=== PATIENT | female | born 1950 | race Caucasian/White ===

== ENCOUNTER 2021-03-10 16:46 | Emergency (ER) | payer OTHER ==
[~2021-03-10] VITALS: Ht 162.6 cm; Wt 84.9 kg
[2021-03-10 17:21] LABS: ABSOLUTE BASOPHILS 0.1 thou/uL (0.0-0.2); ABSOLUTE EOSINOPHILS 0.1 thou/uL (0.0-0.7); ABSOLUTE LYMPHOCYTES 2.9 thou/uL (0.8-5.3); ABSOLUTE MONOCYTES 0.4 thou/uL (0.0-1.2); ABSOLUTE NEUTROPHILS 3.1 thou/uL (1.6-8.1); BASOPHILS 1.2 %; EOSINOPHILS 2.2 %; HEMATOCRIT 34.7 % (37.0-47.0); HEMOGLOBIN 11.7 gm/dL (12.0-15.0); LYMPHOCYTES 43.3 %; MCH 29.6 pg (26.0-34.0); MCHC 33.8 g/dL (28.0-37.0); MCV 87.6 fL (80.0-100.0); MONOCYTES 6.1 %; MPV 6.8 fl. (7.2-11.1); NUCLEATED RBCS 0 /100WBC; PLATELET COUNT* 285 thou/uL (150-400); POLYS 47.2 %; RBC 3.97 mil/uL (4.20-5.00); RDW-CV 14.1 % (10.5-14.5); WBC 6.6 thou/uL (4.0-11.0)
[2021-03-10] MEDS ORDERED: ATENOLOL 25 MG25 M1 PO (17:24)
[2021-03-10] MEDS ORDERED: DULCOLAX STOOL100 M1 PO (17:25)
[2021-03-10] MEDS ORDERED: CALCIUM-VITAMI1 EACH PO (17:25)
[2021-03-10] MEDS ORDERED: LIPITOR40 MG PO (17:25)
[2021-03-10] MEDS ORDERED: FELODIPINE ER10 MG PO (17:25)
[2021-03-10] MEDS ORDERED: FLUOCINOLONE AC60 ML TOP (17:26)
[2021-03-10] MEDS ORDERED: NEURONTIN 300M300 M2 PO (17:27)
[2021-03-10] MEDS ORDERED: FLUOROURAC5 GM/100 M IV (17:27)
[2021-03-10] MEDS ORDERED: LISINOPRIL20 MG PO (17:28)
[2021-03-10] MEDS ORDERED: FEMARA2.5 MG PO (17:28)
[2021-03-10] MEDS ORDERED: NITROSTAT0.4 M1 PO (17:29)
[2021-03-10] MEDS ORDERED: VENLAFAXINE HCL75 M2 PO (17:29)
[2021-03-10] MEDS ORDERED: MIRALAX119 GM PO (17:29)
[2021-03-10] MEDS ORDERED: PROTONIX40 M4 PO (17:29)
[2021-03-10 17:30] LABS: CALCIUM 9.3 mg/dL (8.5-10.1); CREATININE 1.5 mg/dL (0.6-1.3); POTASSIUM 3.4 mmol/L (3.5-5.1)
[2021-03-10 17:34] LABS: ALBUMIN 3.8 g/dL (3.4-5.0); TOTAL BILIRUBIN 0.2 mg/dL (<0.1-1.0); TOTAL PROTEIN 7.1 g/dL (6.4-8.2)
[2021-03-10 18:24] LABS: URINE BILIRUBIN NEGATIVE (Negative); URINE BLOOD NEGATIVE (Negative); URINE CLARITY CLEAR; URINE COLOR STRAW; URINE GLUCOSE-RANDOM NEGATIVE (Negative); URINE KETONES NEGATIVE (Negative); URINE LEUKOCYTES-REFLEX NEGATIVE (Negative); URINE NITRITE-REFLEX NEGATIVE (Negative); URINE PROTEIN NEGATIVE (Negative); URINE SPECIFIC GRAVITY 1.015 (1.005-1.030); URINE UROBILINOGEN 0.2 E.U./dl (0.2-1.0)
[2021-03-10] MEDS ORDERED: REGLAN10 MG PO (20:39)
[2021-03-10 20:49] VITALS: BP 161/67
--- NOTE | 2021-03-11 11:48 | EKG ---
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 : [id number] Requested By: [place] Order Number: [id number] MD: Harsha Wick Measurements Intervals [place] Rate: 64 P: 68 OR: 179 QRS: 49 QRSD: 99 T: -29 QT: 461 QTc: 476 Interpretive Statements Sinus rhythm Nonspecific repol abnormality, diffuse leads, consider ischemia Baseline wander in lead(s) V6 No previous ECG available for comparison Electronically Signed On 03-11-2021 11:48:32 CDT by Harsha Wick [email or web address] <ELECTRONICALLY SIGNED> By: Harsha Wick MD, FACC 03/11/21 1148 [id number] 1658 Harsha Wick MD, [facility] /EPI
== END 2021-03-10 20:49 | disposition home or self-care (01) ==
LOC: M.ERS 16:46
PROVIDERS: Family Medicine
DX: R11.2 Nausea with vomiting, unspecified (principal); R10.30 Lower abdominal pain, unspecified; Z88.5 Allergy status to narcotic agent; Z88.0 Allergy status to penicillin; Z79.899 Other long term (current) drug therapy